=== PATIENT | male | born 1965 | race African-American/Black ===

== ENCOUNTER 2024-08-22 13:34 | Emergency (ER) | payer SELFPAY ==
[2024-08-22 13:46] VITALS: BP 140/91; PULSE 86; TEMP 36.8; O2SAT 100; BMI 19.0
--- NOTE | 2024-08-22 13:55 | XR_ITS ---
The [address] [address] Patient Name: MAKSIM MATA MRN: [id number] date: 1965 Sex: M Assigned Patient Location: ER Current Patient Location: ER Accession/Order Number: [id number] Exam Date: 08/22/2024 14:23 Report Date: 08/22/2024 14:24 At the request of: ARGENTINA QUINONES MD Procedure: XR shoulder LT min 2V LEFT SHOULDER - - 3 views CLINICAL HISTORY: Chronic left shoulder pain. COMPARISON: None FINDINGS: There appears be moderate degenerative changes involving the AC joint with presumed chronic AC separation. Glenohumeral joint appears unremarkable. Subacromial space appears maintained. No acute bony process. XR/XR shoulder LT min 2V IMPRESSION: MODERATE DEGENERATIVE CHANGES INVOLVING THE AC JOINT WITH PRESUMED CHRONIC AC JOINT SEPARATION. NO ACUTE BONY PROCESS. Impression dictated by: Yanick Louis Jr., DJordanOJordan 08/22/2024 2:24 PM Dictation Location: [place] [address] Electronically authenticated by: [id number] Y Date: 08/22/2024 14:24
--- NOTE | 2024-08-22 14:12 | ED_ITS ---
HPI - Extremity Problem General Chief complaint: Extremity Problem, Nontraumatic Stated complaint: L SHOULDER PAIN Time Seen by Provider: 08/22/24 14:12 Source: patient Mode of arrival: walk-in History of Present Illness HPI Narrative: 59 year old male presents to the ED for pain to his left shoulder. He has chronic pain to the shoulder s/p injury in 1995. States he has been moving and doing a lot of heavy lifting. His pain has increased over the past three weeks. Reports limited ROM due to the pain. The pain is to the anterior shoulder area. Denies specific recent injury. Denies N/T. He has been taking Tylenol without relief. He is accompanied by family for a ride home. Related Data Previous Rx's ?Medication ?Instructions ?Recorded hydrocodone 5 mg-acetaminophen 325 1 tab PO Q8H PRN pa in 4 days #10 08/22/24 mg tablet tabs prednisone 20 mg tablet 40 mg (2 x 20 mg) PO DAILY 5 days 08/22/24 #10 tabs tizanidine 2 mg capsule (Zanaflex) 2 mg PO Q8H PRN mus toan spasticity 08/22/24 #14 caps Allergies Allergy/AdvReac Type Severity Reaction Status Date / Time Penicillins Allergy Severe Unknown Verified 08/22/24 13:51 Review of Systems ROS Constitutional Denies: fever or chills Cardiovascular Denies: chest pain Respiratory Denies: shortness of breath Musculoskeletal Reports: extremity pain; Denies: back pain, neck pain or extremity swelling Integumentary/Breast Denies: rash Neurological Denies: headache, numbness in extremities or weakness in extremities PFSH PFSH Social History Little interest or pleasure in doing things: not at all Feeling down, depressed, or hopeless: not at all Exam Constitutional Vital Signs, click to edit/add: Last Vital Signs Temp 98.3 F 08/22/24 13:46 Pulse 86 08/22/24 13:46 Resp 16 08/22/24 13:46 BP 140/91 08/22/24 13:46 Pulse Ox 100 08/22/24 13:46 O2 Del Method Room Air 08/22/24 13:46 Common normals: no apparent distress and oriented x3 General appearance: cooperative HENMT Common normals: moist oral mucous membranes Eye Common normals: conjunctivae normal and no scleral icterus Neck & C-Spine Common normals: supple Chest Chest: symmetrical chest wall rise Respiratory Effort & inspection: able to speak in complete sentences and symmetric chest movement Cardio Common normals: regular rate Peripheral pulses: radial pulses present Extremity Other: Tenderness to left anterior shoulder. No swelling or deformity noted. Distal sensation intact. Limited ROM to the shoulder due to pain. Neuro Common normals: oriented x3 and moves all extremities Sensorium/orientation: awake and alert Speech: speech normal Gait (neuro): normal gait Course Vital Signs Vital signs: Vital Signs Temperature 98.3 F 08/22/24 13:46 Pulse Rate 86 08/22/24 13:46 Respiratory Rate 16 08/22/24 13:46 Blood Pressure 140/91 08/22/24 13:46 Pulse Oximetry 100 08/22/24 13:46 Oxygen Delivery Method Room Air 08/22/24 13:46 Temperature 98.3 F 08/22/24 13:46 Pulse Rate 86 08/22/24 13:46 Respiratory Rate 16 08/22/24 13:46 Blood Pressure 140/91 08/22/24 13:46 Pulse Oximetry 100 08/22/24 13:46 Oxygen Delivery Method Room Air 08/22/24 13:46 MDM - Extremity (Nontraumatic) MDM Narrative Medical decision making narrative: He was medicated with Decadron, Zanaflex, and Percocet here. He reported improvement. X-ray findings were discussed. Follow up with pcp and an orthopedist for a recheck, further evaluation and treatment. [facility] was reviewed. Prescriptions were provided for prednisone, Zanaflex, and [place]. Imaging Data XR: Attestation: I have reviewed the pertinent imaging results. Radiologist's impression: ITS Impressions Shoulder X-Ray 08/22/24 13:55 IMPRESSION: MODERATE DEGENERATIVE CHANGES INVOLVING THE AC JOINT WITH PRESUMED CHRONIC AC JOINT SEPARATION. NO ACUTE BONY PROCESS. Impression dictated by: Yanick Louis Jr., D.O. 08/22/2024 2:24 PM Dictation Location[facility] Electronically authenticated by: [id number] Y Date: 08/22/2024 14:24 Discharge Plan Discharge Chief Complaint: Extremity Problem, Nontraumatic Clinical Impression: Left shoulder pain Patient Disposition: Home, Self-Care Time of Disposition Decision: 14:59 Condition: Good Mode of Transportation: Private Vehicle Prescriptions / Home Meds: New prednisone 20 mg tablet 40 mg PO DAILY 5 Days Qty: 10 0RF hydrocodone-acetaminophen 5-325 mg tablet 1 tab PO Q8H PRN (Reason: pain) 4 Days Qty: 10 0RF tizanidine [Zanaflex] 2 mg capsule 2 mg PO Q8H PRN (Reason: muscle spasticity) Qty: 14 0RF Print Language: Cuban Instructions: Arthralgia (ED), Shoulder Pain (ED) Additional Instructions: Return to the ER for worsening symptoms. Referrals: Physician,Non-Staff, MD [Primary Care Provider] - 1 week Jesus Manuel Alanis MD [Physician, Orthopedics] - 1 week
[2024-08-22] MEDS: TIZANIDINE HCL 4 MG TABLET PO (14:33)
[2024-08-22] MEDS: DEXAMETHASONE SOD PHOS 10 MG/ML VIAL PO (14:34)
[2024-08-22] MEDS: OXYCODONE HCL/ACETAMINOPHEN 5MG/325MG 1 TAB PO (14:34)
== END 2024-08-22 15:08 | disposition home or self-care (01) ==
PROVIDERS: Emergency Provider Emergency Medicine
DX: M25.512 Pain in left shoulder (principal); M19.012 Primary osteoarthritis, left shoulder
CPT/HCPCS: 73030; 99284; J1100